=== PATIENT | male | born 2000 | race Asian ===

== ENCOUNTER 2022-03-28 12:26 | Emergency (ER) | payer SELFPAY ==
[2022-03-28 12:31] VITALS: BP 127/58; PULSE 92; RESP 16; TEMP 36.7; O2SAT 98
--- NOTE | 2022-03-28 12:57 | ED.GENADUL_ITS ---
Discharge Plan Disposition Patient Disposition: HOME Condition: Stable Discharge Details Clinical Impression: Laceration of right lower extremity Primary Care Provider: [facility] Provider: Alice Garcia Home Meds and New Rx's Prescriptions: No Action No Known Home Meds Discharge Instructions Instructions: Laceration (ED) Additional Instructions: Keep clean and dry. After 12 to 24 hours you may wash in a running soap and water in the shower. No soaking no swimming. Have sutures removed in 5 to 7 days. Return to the ER sooner if you have any concerns for infection, drainage or red streaks. You may return here for suture removal or urgent care or PCP at your convenience. Follow up with primary care provider in 5-7 days. Return to ED sooner if any worsening or concerns. Increase oral fluids. Please take Tylenol or Ibuprofen with food every 4-6 hours as needed for pain and swelling. Discharge Data Discharge Date/Time-TO BE ENTERED AT DEPARTURE: 03/28/22 15:08 Medical Decision Making 21-year-old male presents to the ER with a right lower leg laceration which occurred approximately 30 minutes prior to arrival. Patient was cutting wood when he missed and hit his right anterior norton with the ax. He is not up-to-date on his tetanus vaccine per his mother report. Bleeding is controlled upon arrival. There is approximately 1 cm vertical laceration to his anterior norton. He has full range of motion to his ankle and foot, distal CMS is intact. 1505: Wound anesthetized with 1.5% lidocaine and epinephrine approximately 2 cc. Patient tolerated well. X-ray tib-fib ordered to rule out foreign body. Tdap vaccination ordered. Laceration repaired with 3 simple interrupted four-point 0 Ethilon sutures wound was well approximated. Patient tolerated well. Wound was cleaned with chlorhexidine scrub and irrigated with normal saline by staff electronic warfare officer. Discussed home care strict return instructions and follow-up care with patient and mother who verbalized understanding. This text was generated using [employer] system, please disregard any oddities of phrase or misspellings. HPI General Mode of arrival: ambulatory . Date/Time Provider Initiated Documentation: 03/28/22 12:35 . Limitations to Documentation: no limitations . Information obtained by: patient, family and RN notes reviewed . HPI Narrative: 21-year-old male presents to the ER with a right lower leg laceration which occurred approximately 30 minutes prior to arrival. Patient was cutting wood when he missed and hit his right anterior norton with the ax. He is not up-to-date on his tetanus vaccine per his mother report. Bleeding is controlled upon arrival. There is approximately 1 cm vertical laceration to his anterior norton. He has full range of motion to his ankle and foot, distal CMS is intact. Related Data Home Medications Medication Instructions Recorded Confirmed Unknown [No Known Home Meds] 03/28/22 03/28/22 Allergies Allergy/AdvReac Type Severity Reaction Status Date / Time No Known Allergies Allergy Unverified 03/28/22 12:34 General Stated Complaint: Laceration SOURAV: 3 Review of Systems Integumentary/Breasts Skin/Breast: Reports as per HPI and Reports wounds PFSH All Active Problems (Updated 03/28/22 @ 14:20 by Alice Garcia NP) Laceration of right lower extremity (Acute) Social History Smoking/Tobacco Use Status: Never Smoking risk assessment performed?: Yes Alcohol Intake: never Drug use: Never Substance use type: does not use Do you feel safe at home: Yes Do you feel safe in your relationship?: Yes Exam Extrem Right lower extremity: full ROM and normal capillary refill Upper/lower leg/hip images: 1. 1 cm laceration linear irregular noted to the distal tib-fib anterior medial aspect. No active bleeding noted, foreign body ruled out with imaging. Course Vital Signs Vital signs: Vital Signs Temperature 36.7 C 03/28/22 12:31 Pulse 92 H 03/28/22 12:31 Respiratory Rate 16 03/28/22 12:31 Blood Pressure 127/58 L 03/28/22 12:31 Pulse Oximetry 98 03/28/22 12:31 Temperature 36.7 C 03/28/22 12:31 Temperature Source Temporal Artery Scan 03/28/22 12:31 Pulse 92 H 03/28/22 12:31 Respiratory Rate 16 03/28/22 12:31 Respiratory Effort Non-Labored 03/28/22 12:36 Blood Pressure 127/58 L 03/28/22 12:31 Blood Pressure Position Sitting 03/28/22 12:31 Pulse Oximetry 98 03/28/22 12:31 Oxygen Delivery Method Room Air 03/28/22 12:31 Oxygen Flow Rate 0 03/28/22 12:31 Pain Level 3 03/28/22 12:31 Procedures Laceration Laceration 1: Site: lower extremity Side (If applicable): right Size (cm): 1 Description: linear, irregular and contaminated Depth: simple, single layer Local Anesthetic: Lidocaine 1% and with Epi Amount of anesthesia used (mL): 2 Pre-repair: wound explored, irrigated extensively and deep structures intact Skin layer closed with: nylon (Ethilon) Size (cm): 4-0 Number of sutures: 3 Technique: simple, interrupted
--- NOTE | 2022-03-28 13:00 | DI.RAD_ITS ---
Exam(s) XR TIB/FIB RT EXAM: XR TIB/FIB RT CLINICAL HISTORY: Laceration, hit with axe R/O FB distal medial leg. TECHNIQUE: 2D digital imaging was performed. Two views. COMPARISON: No exams were available for comparison FINDINGS: BONES: No acute fracture is present. No bony destructive lesion is seen. Visualized portion of knee a nd ankle joints are unremarkable. SOFT TISSUE: Normal. No foreign body. IMPRESSION: Unremarkable radiographs of the right tibia and fibula. DATA REPOSITORY: RADIATION DOSE DELIVERED:
--- NOTE | 2022-03-28 14:18 | DI.VRAD_ITS ---
PROCEDURE INFORMATION: Exam: XR Right Tibia and Fibula Exam date and time: 03/28/2022 1:43 PM Age: 21 years old Clinical indication: Other: Laceration, hit with axe R/O fb distal medial leg TECHNIQUE: Imaging protocol: Radiologic exam of the Right tibia and fibula. Views: 2 views. COMPARISON: No relevant prior studies available. FINDINGS: Bones/joints: Unremarkable. Soft tissues: Unremarkable. IMPRESSION: 1. No evidence for acute bony injury. If clinical symptoms persist recommend followup film in 7-10 days. 2. No radiopaque foreign body. Dictated and Authenticated by: Manisha Caldwell MD. Ordering:CHRISTINA Jenkins MD
[2022-03-28 14:23] VITALS: BP 120/82; PULSE 62; RESP 18; TEMP 36.9; O2SAT 99
== END 2022-03-28 15:08 | disposition home or self-care (01) ==
PROVIDERS: Emergency Provider Registered Nurse Emergency
DX: S81.811A Laceration without foreign body, right lower leg, initial encounter (principal); W27.0XXA Contact with workbench tool, initial encounter
CPT/HCPCS: 12001; 90471; 99283; 73590